=== PATIENT | male | born 1970 | race African-American/Black ===

== ENCOUNTER 2017-09-11 16:29 | Emergency (ER) | payer SELFPAY ==
[~2017-09-11] VITALS: Ht 177.8 cm; Wt 79.0 kg
[2017-09-11 16:30] VITALS: BP 138/82
== END 2017-09-12 | disposition left against medical advice (07) ==
LOC: ER 16:37
DX: R10.84 Generalized abdominal pain (principal); R11.2 Nausea with vomiting, unspecified; Z53.21 Procedure and treatment not carried out due to patient leaving prior to being seen by health care provider

== ENCOUNTER 2025-01-13 08:50 | Emergency (ER) | payer OTHER ==
[~2025-01-13] VITALS: Ht 175.3 cm; Wt 90.0 kg
[2025-01-13 08:54] VITALS: O2SAT 97
[2025-01-13 09:34] LABS: BASOPHILS % 0.4 % (0.0-2.0); EOSINOPHILS % 0.2 % (0.0-5.0); HEMATOCRIT. 49.5 % (42.0-52.0); LYMPHOCYTES % 8.8 % (20.0-50.0); MEAN CORPUSCULAR HEMOGLOBIN 28.6 pg (28.0-32.0); MEAN CORPUSCULAR HGB CONC 32.3 g/dL (31.0-37.0); MEAN CORPUSCULAR VOLUME 88.7 fL (80.0-94.0); MEAN PLATELET VOLUME 7.7 fl (7.4-10.4); MONOCYTES % 3.8 % (2.0-8.0); NEUTROPHILS % 86.8 % (40.0-76.0); PLATELET 268 x1000/uL (130-400); RED BLOOD CELL COUNT 5.59 mill/uL (4.7-6.1); RED CELL DISTRIBUTION WIDTH 14.3 % (11.6-14.6); WHITE BLOOD COUNT 9.8 x1000/uL (4.5-11.0)
[2025-01-13 09:46] LABS: PROTHROMBIN TIME 11.6 sec (9.6-11.0)
[2025-01-13 09:58] LABS: CARBON DIOXIDE 21 mEq/L (21-32); CHLORIDE 104 mEq/L (98-107); POTASSIUM 4.1 mEq/L (3.5-5.1); SODIUM 141 mEq/L (136-145)
[2025-01-13 09:59] LABS: CALCIUM 10.6 mg/dL (8.7-10.4)
[2025-01-13] MEDS: MORPHINE SULFATE 4 MG/ML INJ (FOR IV/IM USE) IV STA (09:59)
[2025-01-13] MEDS: SODIUM CHLORIDE 0.9% 1,000 ML IV ONE (09:59)
[2025-01-13 10:03] LABS: CREATININE 1.7 mg/dL (0.6-1.3)
[2025-01-13 10:04] LABS: GLUCOSE 179 mg/dL (70-105); UREA NITROGEN BLOOD 19 mg/dL (9-23)
[2025-01-13 10:05] LABS: ALANINE AMINOTRANSFERASE 12 IU/L (10-49); ALBUMIN 5.4 g/dL (3.2-4.8); ASPARTATE AMINOTRANSFERASE 23 IU/L (<34)
[2025-01-13 10:06] LABS: BILIRUBIN DIRECT 0.1 mg/dL (<=3.0); BILIRUBIN TOTAL 0.5 mg/dL (0.1-1.0); PROTEIN TOTAL 8.8 g/dL (6.0-8.3)
[2025-01-13 10:27] LABS: TROPONIN I HIGH SENSITIVITY < 4 ng/L (3.0-53)
[2025-01-13 12:59] LABS: TROPONIN I HIGH SENSITIVITY < 4 ng/L (3.0-53)
[2025-01-13] MEDS ORDERED: FAMO-135 MT (13:05)
[2025-01-13 14:39] VITALS: BP 140/99; PULSE 132; RESP 17; TEMP 37.1; O2SAT 97
== END 2025-01-13 14:50 | disposition home or self-care (01) ==
LOC: ER 08:50
DX: R10.9 Unspecified abdominal pain (principal); Z87.19 Personal history of other diseases of the digestive system
CPT/HCPCS: 80076; 80048; 82962; 83690; 85025; 85610; 84484; 36415; 71045; 74176; 93005; 96361; 96374; 99285; J2270; J7030; Z7610 ×2